=== PATIENT | female | born 1995 | race Caucasian/White ===

== ENCOUNTER 2018-01-08 14:21 | Outpatient (REF) | payer MEDICAID, SELFPAY ==
--- NOTE | 2018-01-08 13:40 | PAPFT_PTH ---
PATIENT: REYES BULL LOC: [facility] U#:[id number] AGE/SX: 22/F ROOM: RE01/08/[address]: Mag Armendariz : 1995 BED: DIS: 01/08/2018 SPEC #: [id number] RECD: 01/09/18 12:50 STATUS: OREN REJuliet #: [id number] JUVENCIO: 01/08/18 13:[address]: Mag Herrera DEPT: [facility] Cytology RECD BY: Steff Ramirez ENTERED: 01/09/18 12:51 SP TYPE: PAPFT OTHR DR: Andreina Rodriguez Tissues: 1 - CX/ENDOCX FOR PAP SMEARS Procedures: PAP THIN PREP/[facility] Screening Comments:
== END 2018-01-08 14:41 ==
LOC: NCHCN 14:21
PROVIDERS: PCP Family Medicine; Visit Provider Nurse Practitioner Family
DX: N39.0 Urinary tract infection, site not specified (principal); Z12.4 Encounter for screening for malignant neoplasm of cervix; Z11.51 Encounter for screening for human papillomavirus (HPV)
CPT/HCPCS: 87077; 88142; 87086; 87186